=== PATIENT | female | born 1985 | race Caucasian/White ===

== ENCOUNTER 2024-12-19 14:11 | Emergency (ER) | payer OTHER ==
[~2024-12-19] VITALS: Ht 162.6 cm; Wt 65.8 kg
[2024-12-19] MEDS ORDERED: TRIAMCINOLONE430 GM TD (14:31)
[2024-12-19] MEDS ORDERED: PREDNISONE20 M1 PO (14:31)
== END 2024-12-19 14:54 | disposition home or self-care (01) ==
LOC: ED 14:11
DX: L25.9 Unspecified contact dermatitis, unspecified cause (principal)